=== PATIENT | female | born 1970 | race Caucasian/White ===

== ENCOUNTER 2016-11-01 08:54 | Emergency (ER) | payer MEDICARE ==
[~2016-11-01] VITALS: Ht 165.1 cm; Wt 49.9 kg
--- NOTE | 2016-11-01 09:04 | NUR ---
PT IS IN ROOM #2A. DR HERNANDEZ EVALUATED THE PT.
[2016-11-01] MEDS ORDERED: IV NORMAL SALINE 1000 ML BAG IV ONE (09:15)
[2016-11-01 09:56] LABS: BASOPHILS # (AUTO) 0.2 K/uL (0.0-0.2); BASOPHILS % (AUTO) 1.8 % (0.0-2.0); EOSINOPHILS # (AUTO) 0.1 K/uL (0.0-0.7); EOSINOPHILS % (AUTO) 0.7 % (0.0-7.0); HEMATOCRIT 39.2 % (37.0-47.0); HEMOGLOBIN 13.4 g/dL (12.0-16.0); LYMPHOCYTES # (AUTO) 2.2 K/uL (0.8-4.8); LYMPHOCYTES % (AUTO) 18.7 % (20.5-51.5); MEAN CORPUSCULAR HEMOGLOBIN 31.9 uug (27.0-31.0); MEAN CORPUSCULAR HGB CONC 34 g/dL (32.0-37.0); MEAN CORPUSCULAR VOLUME 93.3 fL (81.0-99.0); MONOCYTES # (AUTO) 0.7 K/uL (0.1-1.30); MONOCYTES % (AUTO) 5.9 % (0.0-11.0); NEUTROPHILS # (AUTO) 8.7 K/uL (1.8-8.9); NEUTROPHILS % (AUTO) 72.9 % (38.5-71.5); PLATELET COUNT (AUTO) 360 K/uL (150-450); WHITE BLOOD COUNT (AUTO) 11.9 K/uL (4.0-11.2)
[2016-11-01 10:09] LABS: AMMONIA < 10 umol/L (11-32)
[2016-11-01 10:13] LABS: ETHANOL < 3 MG/DL (0-0)
[2016-11-01 10:15] LABS: LACTIC ACID 1.4 mmol/L (0.4-2.0)
[2016-11-01 10:16] LABS: TROPONIN I < 0.017 ng/mL (0.00-0.056)
[2016-11-01 10:20] LABS: CALCIUM 9.2 mg/dL (8.5-10.1); CARBON DIOXIDE 26 mmol/L (21-32); CHLORIDE 103 mmol/L (98-107); CREATININE 0.6 mg/dL (0.6-1.3); GFR 103 mL/min (>60); GLUCOSE 89 mg/dL (74-106); SODIUM SERUM 139 mmol/L (136-145); UREA NITROGEN, BLOOD 10 mg/dL (7-18)
[2016-11-01 10:24] LABS: ACETAMINOPHEN < 2.0 ug/mL (10-30); ALANINE AMINOTRANSFERASE 27 U/L (14-59); ALBUMIN 4.1 g/dL (3.4-5.0); ALKALINE PHOSPHATASE 101 U/L (50-136); ASPARTATE AMINOTRANSFERASE 23 U/L (15-37); BILIRUBIN,DIRECT 0.1 mg/dL (0.0-0.2); BILIRUBIN,TOTAL 0.4 mg/dL (0.2-1.0); TOTAL PROTEIN, SERUM 7.5 g/dL (6.4-8.2)
[2016-11-01 10:38] LABS: THYROID STIMULATING HORMONE 0.437 mIU/mL (0.358-3.740)
--- NOTE | 2016-11-01 13:11 | NUR ---
pt was d/c to home after ara dee evaluation. gait is stable. no s/s of distress at this time. pt denies pain, no n/v, no sob. d/c instructions given to the pt by ara dee.
[2016-11-01 13:14] VITALS: BP 125/72
== END 2016-11-01 13:15 | disposition home or self-care (01) ==
LOC: ER 08:55 → EDBD 08:55 → ER 13:15
DX: F23 Brief psychotic disorder (principal); F15.10 Other stimulant abuse, uncomplicated; R41.82 Altered mental status, unspecified
CPT/HCPCS: 36415; 70030-TC; 70450; 71010; 72125; 83605; 84443; 84703; 85025; 85730; 87040; 93005; A4663; G0480-TC; G6040-TC; J7030

== ENCOUNTER 2016-11-01 14:00 | Emergency (ER) | payer MEDICARE ==
[~2016-11-01] VITALS: Ht 172.7 cm; Wt 49.9 kg
--- NOTE | 2016-11-01 14:20 | NUR ---
Pt addmitted to room 3, after refusing to leave after being discharderd from the ED, verbalilzed suicidal ideations. Psychiatric direct response consultant called for eval. Pt placed on restraints initially, now released, under close observation at all times. Pt is aggitated, verbally inapropriate, and paranoid. Cont to monitor.
--- NOTE | 2016-11-01 14:40 | NUR ---
Pt is more calm at this time, sitting in gurney and eating.
--- NOTE | 2016-11-01 14:50 | NUR ---
Pt resting in gurney with no s/s of distress noted, pending psych eval.
--- NOTE | 2016-11-01 15:24 | NUR ---
Pt remains on close observation, aggitated, redirected, not receptive; meal provided. Awaiting for psychiatric eval.
--- NOTE | 2016-11-01 16:01 | NUR ---
Pt had psychiatric evaluation, awaiting for a bed in a psychiatric facility on a hold for danger to self.
[2016-11-01] MEDS ORDERED: HALOPERIDOL LACTATE 5 MG/1 ML VIAL IM ONE (16:15)
[2016-11-01] MEDS ORDERED: diphenhydrAMINE 50 MG/1 ML VIAL IM ONE (16:15)
[2016-11-01] MEDS ORDERED: diphenhydrAMINE 50 MG/1 ML VIAL ONE (16:25)
[2016-11-01] MEDS ORDERED: HALOPERIDOL LACTATE 5 MG/1 ML VIAL ONE (16:25)
--- NOTE | 2016-11-01 16:28 | NUR ---
Pt. aggitated, not able to re-orient, medicated as ordered. Report given to [facility], nurse Kathy for transfer , addmitting Dr. Sebastian, unit #2 south. Transportation arranged, will pickle processor patient within 2 hours.
--- NOTE | 2016-11-01 17:58 | NUR ---
Pt resting on a gurney, asleep at this time, nad noted, cont to observe.
--- NOTE | 2016-11-01 18:18 | NUR ---
Patient Tranfers to outside Facility [facility] via ambulance. VSS, nad noted. Physician: Dr. Sebastian
== END 2016-11-01 18:26 | disposition short-term general hospital (02) ==
LOC: ER 14:00
DX: F23 Brief psychotic disorder (principal); F15.10 Other stimulant abuse, uncomplicated
CPT/HCPCS: A4663; J1200; J1630

== ENCOUNTER 2021-09-11 01:46 | Emergency (ER) | payer MEDICARE ==
[~2021-09-11] VITALS: Ht 162.6 cm; Wt 49.9 kg
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
--- NOTE | 2021-09-11 02:03 | NUR ---
DR CRYSTAL AT BEDSIDE FOR MSE.
[2021-09-11] MEDS ORDERED: LORAZEPAM 0.5 MG TABLET PO ONE (02:15)
[2021-09-11] MEDS ORDERED: OLANZAPINE 5 MG TABLET PO ONE (02:15)
--- NOTE | 2021-09-11 02:18 | NUR ---
CALLED [employer] NON EMERGENCY LINE SPOKE WITH DISPATCH 908, OFFICERS WILL BE SENT TO ER.
[2021-09-11] MEDS ORDERED: LORAZEPAM 1 MG TABLET ONE (02:19)
[2021-09-11] MEDS ORDERED: OLANZAPINE 5 MG TABLET ONE (02:19)
[2021-09-11 02:47] LABS: CARBON DIOXIDE 28 mmol/L (21-32); CHLORIDE 103 mmol/L (98-107); CREATININE 0.8 mg/dL (0.6-1.3); GLUCOSE 107 mg/dL (74-106); POTASSIUM 3.7 mmol/L (3.5-5.1); UREA NITROGEN, BLOOD 15 mg/dL (7-18)
--- NOTE | 2021-09-11 02:53 | NUR ---
ASSISTED Terry GOLDSTEIN FOR PELVIC EXAM.
--- NOTE | 2021-09-11 02:55 | NUR ---
[employer] UNIT [id number] (OFFICERS SERIAL # [id number] AND # [id number]) AT BEDSIDE.
[2021-09-11 03:00] LABS: THYROID STIMULATING HORMONE 0.439 mIU/mL (0.358-3.740)
[2021-09-11 03:02] LABS: ACETAMINOPHEN < 2.0 ug/mL (10-30); ALANINE AMINOTRANSFERASE 31 U/L (14-59); ALKALINE PHOSPHATASE 119 U/L (50-136); ASPARTATE AMINOTRANSFERASE 32 U/L (15-37); BILIRUBIN,DIRECT 0.2 mg/dL (0.0-0.2); BILIRUBIN,TOTAL 0.6 mg/dL (0.2-1.0); TOTAL PROTEIN, SERUM 8.2 g/dL (6.4-8.2)
[2021-09-11 03:07] LABS: ETHANOL < 3 MG/DL (0-0)
[2021-09-11 03:08] LABS: *AMPHETAMINE, URINE POSITIVE (NEGATIVE); *CANNABINOID, URINE NEGATIVE (NEGATIVE); *CLARITY,URINE CLOUDY (CLEAR); *COCCAINE, URINE NEGATIVE (NEGATIVE); *COLOR,URINE YELLOW (YELLOW); *KETONES,URINE TRACE (NEGATIVE); *OPIATE, URINE NEGATIVE (NEGATIVE); *PHENCYCLIDINE SCREEN,URINE NEGATIVE (NEGATIVE); *UROBILINOGEN,URINE 0.2 E.U./dl (NORMAL); LEUKOCYTE ESTERASE ,URINE 1+ (NEGATIVE); NITRITE, URINE NEGATIVE (NEGATIVE); UGLUCOSE NEGATIVE (NEGATIVE)
[2021-09-11 03:10] LABS: HEMATOCRIT 40.8 % (31.2-41.9); MEAN CORPUSCULAR HEMOGLOBIN 32.7 uug (24.7-32.8); PLATELET COUNT (AUTO) 412 K/uL (179-408)
[2021-09-11 03:11] LABS: *BLOOD, URINE TRACE (NEGATIVE)
[2021-09-11 03:12] LABS: *BILIRUBIN,URIN 1+ (NEGATIVE)
--- NOTE | 2021-09-11 03:58 | NUR ---
CALLED [facility]. SPOKE WITH JAMIL AND FAXED OVER PT'S CLINICAL REPORT. WILL WAIT FOR CALL BACK FROM [facility].
--- NOTE | 2021-09-11 05:50 | NUR ---
Patient is resting comfortably in bed with eyes closed. Breathing even and unlabored. VSS.
[2021-09-11 06:11] LABS: BACTERIA,URINE MODERATE /HPF (NONE SEEN); MUCUS,URINE FEW /LPF (0-FEW); WBC,URINE 80-100 /HPF (0-3)
--- NOTE | 2021-09-11 07:56 | NUR ---
ART, FROM [facility] [place] CALLED WITH TRANSFER INFORMATION. PT IS ACCEPTED BY KAILA LANGE FOR TRANSPORTATION IS 09:30 T0 10:00.
--- NOTE | 2021-09-11 08:50 | NUR ---
Pt awake and alert. Continues to agree with plan to voluntary admit. Having breakfast. Pts needs met.
--- NOTE | 2021-09-11 08:56 | NUR ---
Report called to [phone], given to Mello Agrawal sup.
--- NOTE | 2021-09-11 09:40 | NUR ---
Transport is here. Pt requesting additional time to eat. Transport states able to give her some extra time. Pt continues to agree with plan to voluntary admit.
--- NOTE | 2021-09-11 09:57 | NUR ---
Pt finished eating and is now refusing to go to [facility] [address]. Provider notified.
[2021-09-11 10:15] VITALS: BP 143/72
--- NOTE | 2021-09-11 10:16 | NUR ---
Pt ambulated without assistance and left without d/c information.
[2021-09-11 14:30] LABS: *URINE HCG, QUAL NEGATIVE (NEGATIVE)
== END 2021-09-11 10:17 | disposition left against medical advice (07) ==
LOC: ER 01:50 → MERGE 01:50 → ER 10:17
DX: F29 Unspecified psychosis not due to a substance or known physiological condition (principal); F17.210 Nicotine dependence, cigarettes, uncomplicated; F15.10 Other stimulant abuse, uncomplicated; T76.21XA Adult sexual abuse, suspected, initial encounter; R03.0 Elevated blood-pressure reading, without diagnosis of hypertension; Z20.822 Contact with and (suspected) exposure to COVID-19; Z53.20 Procedure and treatment not carried out because of patient's decision for unspecified reasons; Z88.1 Allergy status to other antibiotic agents; Z88.8 Allergy status to other drugs, medicaments and biological substances
CPT/HCPCS: 36415; 84443; 84703; 85025; 87086; A4663; G0480

== ENCOUNTER 2021-09-11 21:40 | Inpatient (IN) | payer MEDICARE ==
[~2021-09-11] VITALS: Ht 167.6 cm; Wt 57.2 kg
--- NOTE | 2021-09-12 00:25 | NUR ---
pt ambulated to room 5a, pt with not stop talking, flight of ideas noted. pt has a small open wound to left lower leg. pt states she wants to kill herself she says she want to be hit by a car in traffic. Called house wirer and security, no sitter available. pt is in close proximety to nurses station, pt will be constantly observed for safety. With security and another RN pt belongings searched, items such as lighters, broken glass from a mirror was removed and placed with security. purse and black bag with clothes left in room.
--- NOTE | 2021-09-12 00:42 | NUR ---
Dr. Sanders at bedside for MSE.
--- NOTE | 2021-09-12 00:47 | NUR ---
purse and clothes were now removed from room and will be kept at the nursing station.
--- NOTE | 2021-09-12 01:16 | NUR ---
INSTRUCTED PT TO PROVIDE URINE SAMPLE. PT STATES SHE IS THIRSTY. PROVIDED WATER BUT PT REFUSES TO DRINK.
[2021-09-12 01:31] LABS: CARBON DIOXIDE 26 mmol/L (21-32); CHLORIDE 103 mmol/L (98-107); CREATININE 0.6 mg/dL (0.6-1.3); GLUCOSE 95 mg/dL (74-106); POTASSIUM 3.3 mmol/L (3.5-5.1); UREA NITROGEN, BLOOD 14 mg/dL (7-18)
[2021-09-12 01:43] LABS: ALANINE AMINOTRANSFERASE 31 U/L (14-59); ALKALINE PHOSPHATASE 109 U/L (50-136); ASPARTATE AMINOTRANSFERASE 36 U/L (15-37); BILIRUBIN,DIRECT 0.1 mg/dL (0.0-0.2); BILIRUBIN,TOTAL 0.4 mg/dL (0.2-1.0)
--- NOTE | 2021-09-12 01:43 | NUR ---
Dr. Sanders informed pt refuses to give urine sample.
[2021-09-12 01:44] LABS: ETHANOL < 3 MG/DL (0-0)
[2021-09-12 01:51] LABS: HEMATOCRIT 37.9 % (31.2-41.9); MEAN CORPUSCULAR HEMOGLOBIN 33.3 uug (24.7-32.8); MEAN CORPUSCULAR VOLUME 96.3 fL (75.5-95.3); PLATELET COUNT (AUTO) 315 K/uL (179-408)
[2021-09-12 02:22] LABS: ACETAMINOPHEN < 2.0 ug/mL (10-30)
--- NOTE | 2021-09-12 02:33 | NUR ---
pt under constant nurse supervision. pt currently with blanket over head. monitoring vital signs.
--- NOTE | 2021-09-12 05:22 | NUR ---
pt has been sleeping. constant observation noted. order was placed for crisis team consult by Dr. Sanders. There is no crisis team nurse after 6am until 8am. Informed Dr. Sanders he states to call the crisis nurse Kelsey at 8am.
--- NOTE | 2021-09-12 07:08 | NUR ---
report given to day shift rn.
--- NOTE | 2021-09-12 07:10 | NUR ---
Observed pt to be looking in the ER room's cabinets and drawers, when asked her what is she looking for, she stated, "f... you and I do what I want." Security was called and Dr Mendoza aware of pt's behavior.
--- NOTE | 2021-09-12 07:11 | NUR ---
state highway police officer standing by the room, for safety.
[2021-09-12] MEDS ORDERED: HALOPERIDOL LACTATE 5 MG/1 ML VIAL IM ONE ×2 (07:15→11:30)
[2021-09-12] MEDS ORDERED: MIDAZOLAM HCL 2 MG/2 ML VIAL IM ONE (07:15)
[2021-09-12] MEDS ORDERED: MIDAZOLAM HCL 2 MG/2 ML VIAL ONE (07:21)
[2021-09-12] MEDS ORDERED: HALOPERIDOL LACTATE 5 MG/1 ML VIAL ONE ×2 (07:21→11:29)
[2021-09-12 07:24] LABS: *BILIRUBIN,URIN 1+ (NEGATIVE); *CLARITY,URINE SLIGHTLY CLOUDY (CLEAR); *COLOR,URINE YELLOW (YELLOW); *KETONES,URINE NEGATIVE (NEGATIVE); *UROBILINOGEN,URINE 0.2 E.U./dl (NORMAL); LEUKOCYTE ESTERASE ,URINE NEGATIVE (NEGATIVE); NITRITE, URINE NEGATIVE (NEGATIVE); PH,URINE 5.5 (5.0-8.0); UGLUCOSE NEGATIVE (NEGATIVE)
[2021-09-12 07:25] LABS: *BLOOD, URINE TRACE (NEGATIVE)
--- NOTE | 2021-09-12 07:35 | NUR ---
PT BECAME VERBALLY ABUSIVE TO ER STAFF. PT IS THROWING ITEMS AND WATER ON THE FLOOR. SECURITY WAS CALLED TO BEDSIDE. PT WAS AGREE TO GO TO BED AND NOW IS RESTING COMFORTABLY IN BED. CONTINUE TO MONITOR THE PT.
[2021-09-12 07:38] LABS: MUCUS,URINE MANY /LPF (0-FEW)
[2021-09-12 07:39] LABS: BACTERIA,URINE FEW /HPF (NONE SEEN)
[2021-09-12 07:41] LABS: *AMPHETAMINE, URINE POSITIVE (NEGATIVE); *CANNABINOID, URINE POSITIVE (NEGATIVE); *COCCAINE, URINE NEGATIVE (NEGATIVE); *OPIATE, URINE NEGATIVE (NEGATIVE); *PHENCYCLIDINE SCREEN,URINE NEGATIVE (NEGATIVE)
[2021-09-12 07:50] LABS: SQUAMOUS EPITHELIAL CELL,UR FEW /HPF (NONE SEEN)
[2021-09-12 07:51] LABS: RBC,URINE 0-3 /HPF (0-3)
--- NOTE | 2021-09-12 08:07 | NUR ---
Pt is medically cleared by Dr Mendoza. Spoke to Kelsey Telles RN from [facility], ETA @[phone].
--- NOTE | 2021-09-12 09:53 | NUR ---
JORGE FIELD LABORER CAROL EVALUATED THE PT. PT IS RESTING IN BED. NO S/S OF ACUTE DISTRESS AT THIS TIME.
--- NOTE | 2021-09-12 12:43 | NUR ---
REPORT WAS GIVEN TO RN MHU. PT WAS TRANSFERED TO ROOM #138A.
--- NOTE | 2021-09-12 13:02 | NUR ---
GPS: Nursing Notes: Admitting Notes: Patient admitted to MHU on 5150 DTS due to feeling suicidal with a plan to run into traffic, unable to contract for safety, uncooperative, angry, and irritable. Patient is awake and responding to her name, uncooperative with nursing care, impaired judgment, loud and pressured speech, poor historian, depressed mood and angry affect, stated "Yes, I feel like running into traffic...", gets easily irritable when questioned by staff, unkempt appearance, poor grooming, verbally jose for safety, oriented to the unit, admitting package given to the patient, informed of admission, Yarelis Ball NP informed of abnormal labs, stated that she would take a look at the labs, no further orders were given, continue to monitor for safety, continue with treatment plan.
[2021-09-12 13:29] VITALS: BP 86/45
[2021-09-12] MEDS ORDERED: MAGNESIUM HYDROXIDE 30 ML LIQUID UDC PO PRN (13:45)
[2021-09-12] MEDS ORDERED: ZOLPIDEM 5 MG TABLET PO PRN (13:45)
[2021-09-12] MEDS ORDERED: BLOOD SUGAR DIAGNOSTIC 1 EACH STRIP VI ONE (14:30)
[2021-09-12 16:49] VITALS: BP 93/46
[2021-09-12] MEDS: LORAZEPAM 1 MG TABLET PO PRN (21:01)
--- NOTE | 2021-09-13 06:10 | NUR ---
Patient slept 9 hours. At one point , at the start of the shift, this patient woke up. Asked for food, and " Ativan", agreed to shower, but soon went back to sleep. The patient was calm, but seemed easily agitated. No behavior escalation noted so far and continuing with safety stratiges. This patient made a verbal contract for safety with this radio script writer.
[2021-09-13 07:07] LABS: HEMATOCRIT 38.7 % (31.2-41.9); MEAN CORPUSCULAR HEMOGLOBIN 33.4 uug (24.7-32.8); MEAN CORPUSCULAR VOLUME 96.4 fL (75.5-95.3); PLATELET COUNT (AUTO) 300 K/uL (179-408)
[2021-09-13 07:16] LABS: CREATININE 0.6 mg/dL (0.6-1.3); POTASSIUM 3.7 mmol/L (3.5-5.1)
[2021-09-13 07:52] VITALS: BP 87/44
[2021-09-13] MEDS: risperiDONE 0.25 MG TABLET PO SCH ×2 (09:30→16:40)
--- NOTE | 2021-09-13 11:19 | NUR ---
GPS: Nursing Notes: Destructive Behavior to Self: Patient is awake and responding to her name, impaired judgment, poor anger management, poor impulse control, labile, unpredictable behavior, gets easily irritable when redirected, loud and pressured speech, verbal abusive toward roommate, using profanities when her demands are not met immediately, depressed mood and angry affect, poor grooming, believes that she has a leg fracture, but able to ambulate without any discomfort, refusing her psych. medications, refusing nursing care, laying down on a position and sleeping, asking for food, but refusing to eat, unable to formulate a viable plan for self care, refusing to shower, poor grooming, unkempt appearance, continue with treatment plan.
--- NOTE | 2021-09-13 11:32 | NUR ---
GPS: Nursing Notes: Uncooperative with Staff: Patient is refusing to give urine for lab. test, refusing for MRSA to be done, paranoid behavior, verbal abusive, threatening staff with patient's rights, threatening to [facility]ennifer the hospital, "I don't belong here..", continue with treatment plan.
[2021-09-13] MEDS: ACETAMINOPHEN 325 MG TABLET PO PRN (13:49)
[2021-09-13] MEDS: LORAZEPAM 1 MG TABLET PO PRN (13:49)
[2021-09-13] MEDS ORDERED: OLANZAPINE 10 MG VIAL IM STA (15:08)
--- NOTE | 2021-09-13 15:16 | NUR ---
GPS: Nursing Notes: Severe Agitation: Patient is awake and responding to her name, violent outburst without provocation, verbal abusive, using profanities toward staff, threatening to somebody here, threatening to [facility] the [facility], posturing toward staff, AWOL risk, walking on the hallway fast, half naked looking for an exit door, "I DON'T FUCKEN BELONG HERE..", overly disruptive by shouting profanities, restless behavior, paranoid behavior, throwing things around, unable to be redirected, poor anger management, continue to monitor for safety, Dr. Shahab rodriguez, continue with treatment plan.
--- NOTE | 2021-09-13 15:21 | NUR ---
GPS: Nursing Notes: Chemical Restraint: Patient continue to be overly disruptive by shouting profanities toward staff, threatening to kill the staff, threatening to [facility], posturing toward staff, throwing things around her room, half naked walking fast, looking for an exit door, AWOL risk, restless behavior, setting limits, but unable to follow directions, Dr. Gudino called and order: Zyprexa 10mg IM STAT X1 for severe agitation, R=18, IM medication given at this time, continue to monitor for safety, continue with treatment plan.
--- NOTE | 2021-09-13 15:51 | NUR ---
GPS: Nursing Notes: Reassessment of Chemical Restraint: Patient is awake responding to her name, believes that she does not belong here, asking for food, but not eating, throwing trash all over her room. Patient became calm, isolative in her room, stopped shouting, continue to monitor for safety, IM medication was helpful, R=18, resistant to nursing care, refusing to shower, continue with treatment plan.
[2021-09-13 19:48] VITALS: BP 99/50
[2021-09-13] MEDS ORDERED: TRAZODONE 50 MG TABLET PO SCH (21:00)
--- NOTE | 2021-09-14 05:34 | NUR ---
Patient slept for long hours. In the beginning of the shift, patient was asking for food and coffee. Strongly refused to take trazodone. Patient get easily agitated with noise, but remained calm, no escalation of behavior noted. Safety strategies provided. Suicidal ideation not noted.
[2021-09-14] MEDS: ACETAMINOPHEN 325 MG TABLET PO PRN ×2 (06:37→15:09)
[2021-09-14 08:00] VITALS: BP 125/53
[2021-09-14] MEDS ORDERED: TRAZODONE 50 MG TABLET PO PRN (08:30)
[2021-09-14] MEDS: OLANZAPINE ZYDIS 5 MG TAB.RAPDIS PO SCH ×2 (09:11→17:23)
[2021-09-14] MEDS: SERTRALINE HCL 50 MG TABLET PO SCH (09:11)
[2021-09-14] MEDS: CEphaleXIN 500 MG CAPSULE PO SCH ×2 (09:13→21:23)
--- NOTE | 2021-09-14 12:24 | NUR ---
DIANA Initial Discharge Note: Pt was brought to [facility] for psychiatric evaluation. Pt is unable to ascertain any information. Per report, pt is homeless and does not have a person to notify. DIANA will continue to work with pt, family, and MD to ensure a safe and proper discharge plan.
--- NOTE | 2021-09-14 12:24 | NUR ---
SW Admit Source: Pt was brought to [facility] for psychiatric evaluation. Pt is unable to ascertain any information. Per report, pt is homeless and does not have a person to notify. SW will continue to work with pt, family, and MD to ensure a safe and proper discharge plan.
--- NOTE | 2021-09-14 12:57 | NUR ---
report given to JOHN Cancino. patient is in stable condition
--- NOTE | 2021-09-14 13:00 | NUR ---
in bed, eating lunch, able to consume 100% of food served. Calm and cooperative with care. Resting after lunch.
[2021-09-14] MEDS: LORAZEPAM 1 MG TABLET PO PRN (15:04)
--- NOTE | 2021-09-14 15:10 | NUR ---
Patient out in the hallway, wrapped in bedsheet, agitated, asking for a shower, wound care to LLE Redirected back to her room. Refused Ativan, to change to hospital gown and wound care. She only asked for Tylenol with juice and crackers. Calmer after
[2021-09-14 16:00] VITALS: BP 126/73
--- NOTE | 2021-09-14 16:00 | NUR ---
agitated, argumentative. Redirected. Took Ativan
--- NOTE | 2021-09-14 18:02 | NUR ---
Eating dinner. Calmer. Compliant with taking of medication
--- NOTE | 2021-09-14 20:30 | NUR ---
RECEIVED PATIENT IN HER ROOM IN BED SLEEPING BUT EASILY AWAKEN. SHE IS NOTED A/O X 2. TANGENTAL, LABILE, DELUSIONAL THINKING, IMPAIRED INSIGHT AND JUDGMENT IS NOTED TO THE REASON FOR HER ADMISSION TO MHU. SHE WAS GIVEN PO FLUIDS AND SNACKS/ SHE IS REASSURED FOR HER SAFETY. SAFETY AND FALL PRECAUTION ARE IN PLACE. V/S STABLE. WILL CONTINUE TO MONITOR.
[2021-09-14 20:49] VITALS: BP 126/56
[2021-09-15] MEDS: ACETAMINOPHEN 325 MG TABLET PO PRN ×2 (05:58→16:54)
--- NOTE | 2021-09-15 06:54 | NUR ---
Patient slept for approx 9 hrs through the night. she was compliant with her [facility] medication. Sh4e denied SI/HI/VH/AH she is able to verbally CFS. will endorse accordingly.
[2021-09-15 07:30] VITALS: BP 116/49
--- NOTE | 2021-09-15 08:00 | NUR ---
Awake, calm and pleasant. Eating fairly. compliant with taking of medications
[2021-09-15] MEDS: CEphaleXIN 500 MG CAPSULE PO SCH ×2 (08:48→21:02)
[2021-09-15] MEDS: OLANZAPINE ZYDIS 5 MG TAB.RAPDIS PO SCH ×2 (08:48→16:54)
[2021-09-15] MEDS: SERTRALINE HCL 50 MG TABLET PO SCH (08:48)
[2021-09-15] MEDS: ENSURE ENLIVE (VAN) 240 ML LIQUID PO SCH (08:49)
--- NOTE | 2021-09-15 09:34 | NUR ---
on 14 day hold, faxed to court.
[2021-09-15] MEDS: NICOTINE 7 MG/24HR PATCH TD SCH (10:35)
--- NOTE | 2021-09-15 10:35 | NUR ---
had a shower. requested for nicotine patch, applied as ordered
--- NOTE | 2021-09-15 13:28 | NUR ---
Ate lunch fairly. Sleeping after
--- NOTE | 2021-09-15 15:00 | NUR ---
Awake, on phone calls to family and friends. Elated, with multiple request. Redirected
[2021-09-15 16:00] VITALS: BP 153/70
--- NOTE | 2021-09-15 18:16 | NUR ---
Ate 100% of meal. Compliant with taking of medications. Resting comfortably
[2021-09-15 20:00] VITALS: BP 117/82
[2021-09-15] MEDS: LORAZEPAM 1 MG TABLET PO PRN (21:05)
--- NOTE | 2021-09-16 04:44 | NUR ---
Received lying in bed, pleasant upon approach. Denies any thoughts of suicide, or wanting to hurt self. PRN Ativan was given at bedtime, and has slept well all night. No distress noted.
[2021-09-16] MEDS: ACETAMINOPHEN 325 MG TABLET PO PRN ×3 (07:33→17:50)
[2021-09-16 08:07] VITALS: BP 125/80
[2021-09-16] MEDS: SERTRALINE HCL 50 MG TABLET PO SCH (09:03)
[2021-09-16] MEDS: OLANZAPINE ZYDIS 5 MG TAB.RAPDIS PO SCH ×2 (09:03→17:49)
[2021-09-16] MEDS: CEphaleXIN 500 MG CAPSULE PO SCH ×2 (09:03→20:28)
[2021-09-16] MEDS: NICOTINE 7 MG/24HR PATCH TD SCH (09:03)
[2021-09-16] MEDS: ENSURE ENLIVE (VAN) 240 ML LIQUID PO SCH (09:04)
[2021-09-16] MEDS: MAG HYDROX/AL HYDROX/SIMETH 30 ML LIQUID UDC PO PRN ×2 (11:28→17:50)
--- NOTE | 2021-09-16 11:35 | NUR ---
GPS: PT RECEIVED TODAY ON GOOD MOOD. PACING THE HALLWAY, HAVING FUN WITH OTHER PT, TALKING WITH THEM AND SINGING. PT REQUESTED TYLENOL FOR WOUND PAIN. ALSO REQUESTED FOR MYLANTA FOR STOMACH UPSET. PARTICIPATED WITH GROUP THERAPY. PT ROMEL NEEDY AT TIMES, ASKING FOR ALL STUFF.
[2021-09-16 16:00] VITALS: BP 104/68
--- NOTE | 2021-09-16 18:25 | NUR ---
GPS: PT LIKES PACING ON THE HALLWAY. ONE EPISODE OF AGITATION THAT PT WAS ASKING FOR PANTS AND ALL STUFFS AND PT WALKED ON THE HALLWAY NAKED. RE-DIRECTED PT AND ABLE TO FOLLOW COMMAND AND PT PUT ON HER PANTS. PAIN ON WOUND SITE NOTED, TREATMENT DONE AND DRESSING CHANGED, MILD DISCHARGE NOTED, NO SWELLING OR REDNESS. REQUESTED FOR TYLENOL 650MG DUE TO PAIN ON WOUND SITE. ALSO GIVEN MYLANTA AT AROUND 1800. PT STATED SHE HAS LACTOSE INTOLERANCE.
--- NOTE | 2021-09-16 20:15 | NUR ---
Received patient initially walking in the hallway with calm behavior, giving appropriate answers when asked. However, suddenly patient screaming, aggressive, throwing trash and verbally abusive to the staff. Reorient patient to reality, redirected and reassured of her safety. Ativan 1mg PO given. Patient went back to her room laying in bed and calm down at this time.
[2021-09-16] MEDS: LORAZEPAM 1 MG TABLET PO PRN (20:29)
[2021-09-16 20:43] VITALS: BP 105/55
--- NOTE | 2021-09-17 06:45 | NUR ---
Patient slept well through the night for 7.45hrs. She woke up and wanted to take a shower. She took shower independently. Dressing of wound at left khan done, wound is dry with minimal redness around the wound. Agressive behavior not noted at this time. Observed to have a positive outlook today stated" its a brand new day for me and I want to go home soon".
[2021-09-17] MEDS: ACETAMINOPHEN 325 MG TABLET PO PRN ×2 (06:51→14:55)
[2021-09-17 08:04] VITALS: BP 120/50
[2021-09-17] MEDS: NICOTINE 7 MG/24HR PATCH TD SCH (08:34)
[2021-09-17] MEDS: CEphaleXIN 500 MG CAPSULE PO SCH ×2 (08:34→21:44)
[2021-09-17] MEDS: SERTRALINE HCL 50 MG TABLET PO SCH (08:35)
[2021-09-17] MEDS: ENSURE ENLIVE (VAN) 240 ML LIQUID PO SCH (08:35)
[2021-09-17] MEDS: OLANZAPINE ZYDIS 5 MG TAB.RAPDIS PO SCH ×2 (08:40→17:13)
[2021-09-17] MEDS ORDERED: ESTRADIOL 1 MG TABLET PO SCH (10:30)
--- NOTE | 2021-09-17 10:32 | NUR ---
GPS: PT ALERT AND VERBALLY RESPONSIVE. NO AGITATION NOTED AT THIS TIME. TOLERATED MEDS GIVEN AND COOPERATIVE WITH CARE. PT NEEDY AND ATTENTION SEEKER. LIKES PACING THE HALLWAY AND PARTICIPATED WITH GROUP THERAPY.
[2021-09-17] MEDS: predniSONE 5 MG TABLET PO SCH (10:45)
[2021-09-17] MEDS ORDERED: ESTRADIOL 1 MG TABLET PO ONE (10:45)
[2021-09-17] MEDS: LORAZEPAM 1 MG TABLET PO PRN ×2 (14:55→23:44)
[2021-09-17] MEDS: BISMUTH SUBSALICYLATE 262 MG/15 ML UDC PO PRN (15:12)
--- NOTE | 2021-09-17 16:56 | NUR ---
GPS: PT REQUESTED FOR MEDS THAT SHE TAKES FROM HOME. COMMUNICATED WITH ZOEY MARADIAGA, THERESA AND ORDERED PROGESTERONE AND ESTRIOL, ALSO PEPTO BISMOL ORDERED PT COMPLAINING OF DIARRHEA. EXPLAINED TO PT THAT IT COULD BE THE SIDE EFFECT OF KEFLEX SHE'S TAKING. PT ALSO GIVEN TYLENOL NEEDED.
[2021-09-17 20:00] VITALS: BP 108/60
[2021-09-18] MEDS: ACETAMINOPHEN 325 MG TABLET PO PRN ×2 (05:31→12:02)
--- NOTE | 2021-09-18 06:36 | NUR ---
Received to care, lying in bed, isolative, but pleasant upon approach. PRN Ativan was given at bedtime. She continues to deny any suicidal thoughts. She slept well, throughout the night. She remains calm and cooperative. No distress noted.
[2021-09-18] MEDS: BISMUTH SUBSALICYLATE 262 MG/15 ML UDC PO PRN ×2 (07:47→16:57)
[2021-09-18] MEDS: SERTRALINE HCL 50 MG TABLET PO SCH (08:18)
[2021-09-18] MEDS: NICOTINE 7 MG/24HR PATCH TD SCH (08:18)
[2021-09-18] MEDS: OLANZAPINE ZYDIS 5 MG TAB.RAPDIS PO SCH ×2 (08:19→16:18)
[2021-09-18] MEDS: predniSONE 5 MG TABLET PO SCH (08:19)
[2021-09-18] MEDS: CEphaleXIN 500 MG CAPSULE PO SCH ×2 (08:19→20:29)
[2021-09-18] MEDS: ENSURE ENLIVE (VAN) 240 ML LIQUID PO SCH (08:19)
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
[2021-09-18 09:48] VITALS: BP 108/62
[2021-09-18 16:18] VITALS: BP 98/48
[2021-09-18 20:00] VITALS: BP 108/55
[2021-09-18] MEDS: LORAZEPAM 1 MG TABLET PO PRN (20:29)
[2021-09-19 07:30] VITALS: BP_SYST 121; BP_SYST 98; BP_DIAS 53; BP_DIAS 67
[2021-09-19] MEDS: ACETAMINOPHEN 325 MG TABLET PO PRN (07:43)
[2021-09-19] MEDS: BISMUTH SUBSALICYLATE 262 MG/15 ML UDC PO PRN ×2 (08:11→15:50)
[2021-09-19] MEDS: NICOTINE 7 MG/24HR PATCH TD SCH (08:12)
[2021-09-19] MEDS: CEphaleXIN 500 MG CAPSULE PO SCH ×2 (08:13→20:23)
[2021-09-19] MEDS: OLANZAPINE ZYDIS 5 MG TAB.RAPDIS PO SCH ×2 (08:13→17:28)
[2021-09-19] MEDS: SERTRALINE HCL 50 MG TABLET PO SCH (08:13)
[2021-09-19] MEDS: predniSONE 5 MG TABLET PO SCH (08:14)
[2021-09-19] MEDS: ENSURE ENLIVE (VAN) 240 ML LIQUID PO SCH (08:19)
[2021-09-19] MEDS: LORAZEPAM 1 MG TABLET PO PRN (13:57)
[2021-09-19 16:00] VITALS: BP 98/53
--- NOTE | 2021-09-19 17:58 | NUR ---
Received patient awake in the hallway. A/O X 2 to person, place. Pt. is calm, cooperative, depressed. Ambulates without assistance. Requires minimal assistance with ADL. Compliant with medications. Pt. is encourage to vent feelings and emotions. Fall and safety precautions implemented. Addendum: 09/19/21 at 1803 by RAUDEL SAGASTUME RN Please disregard this progress note, wrong patient.
--- NOTE | 2021-09-19 18:05 | NUR ---
Received patient awake in her room. A/O X 3 to person, place. Pt. is anxious, demanding, needy, fixated on snacks, gets irritated easily. Tylenol 650 mg was given at 07:43 for headache, effective. Ativan 1 mg was given at 13:55 for anxiety, effective. [place] Bismuth 262 mg/ 15 ml given twice for diarrhea, last one at 15:51. Ambulates independently. Self care. Pt. is encourage to verbalize concerns. Fall and safety precautions implemented.
[2021-09-19 19:55] VITALS: BP 101/51
[2021-09-20] MEDS: BISMUTH SUBSALICYLATE 262 MG/15 ML UDC PO PRN ×2 (05:10→16:08)
[2021-09-20 07:47] VITALS: BP 112/53
[2021-09-20] MEDS: ACETAMINOPHEN 325 MG TABLET PO PRN ×2 (07:47→15:29)
[2021-09-20] MEDS: CEphaleXIN 500 MG CAPSULE PO SCH (08:10)
[2021-09-20] MEDS: SERTRALINE HCL 50 MG TABLET PO SCH (08:10)
[2021-09-20] MEDS: OLANZAPINE ZYDIS 5 MG TAB.RAPDIS PO SCH ×2 (08:10→18:33)
[2021-09-20] MEDS: ENSURE ENLIVE (VAN) 240 ML LIQUID PO SCH (08:11)
[2021-09-20] MEDS: NICOTINE 7 MG/24HR PATCH TD SCH (08:11)
[2021-09-20] MEDS: predniSONE 5 MG TABLET PO SCH (08:11)
[2021-09-20] MEDS: LORAZEPAM 1 MG TABLET PO PRN (15:29)
--- NOTE | 2021-09-20 15:53 | NUR ---
GPS: RECEIVED PT TODAY ALERT AND VERBALLY RESPONSIVE AND ORIENTED X 3. PT KIND OF NEEDY. PT REQUESTED FROR TYLENOL FOR PAIN AND ATIVAN TO CALM HER DOWN AFTER A PHONE CALL. NO AGITATION NOTED AT THIS TIME. COOPERATIVE WITH CARE AND COMPLIANT WITH MEDS. DID NOT COMPLAIN OF LOSE BOWEL MOVEMENT AT THIS TIME. WILL MONITOR.
[2021-09-20 22:05] VITALS: BP 92/40
[2021-09-21] MEDS: BISMUTH SUBSALICYLATE 262 MG/15 ML UDC PO PRN ×2 (07:22→15:22)
[2021-09-21 07:48] VITALS: BP 102/55
[2021-09-21] MEDS: predniSONE 5 MG TABLET PO SCH (08:48)
[2021-09-21] MEDS: OLANZAPINE ZYDIS 5 MG TAB.RAPDIS PO SCH ×2 (08:48→18:03)
[2021-09-21] MEDS: SERTRALINE HCL 50 MG TABLET PO SCH (08:48)
[2021-09-21] MEDS: NICOTINE 7 MG/24HR PATCH TD SCH (08:48)
[2021-09-21] MEDS: ENSURE ENLIVE (VAN) 240 ML LIQUID PO SCH (08:49)
[2021-09-21] MEDS ORDERED: ESTRADIOL 1 MG TABLET PO SCH (09:00)
--- NOTE | 2021-09-21 09:49 | NUR ---
GPS: RECEIVED PT ALERT AND VERBALLY RESPONSIVE. ORIENTED X 3. PT WILL BE DISCHARGE TO HOME (ADDRESS NOT PROVIDED) VIA BUS TOKEN PROVIDED BY [facility]. PT EXCITED TO BE DISCHARGE. COMPLIANT WITH CARE AND MEDS. NO AGITATION AT THIS TIME. DR VERA PRESCRIBED MEDS FOR DISCHARGE. LEO ANTUNEZ,THERESA MADE AWARE OF THE DISCHARGE.
--- NOTE | 2021-09-21 11:57 | NUR ---
DIANA Discharge Update: DIANA contacted pt's mother Tala ([phone]) and notified her that pt agrees to discharge to [facility] ([phone]) upon discharge. Pt's mother was aware and agreeable with the discharge plan. Pt's mother stated she is thankful as the pt will be in a safe environment. DIANA also notified pt's friend Markos ([phone]) who is pt's friend that was also not bale to provide transportation that pt will no longer need transportation as pt will be discharging to [facility] via ambulance. Markos is aware and agreeable with the discharge plan.
[2021-09-21 15:12] VITALS: BP 92/42
[2021-09-21] MEDS: ACETAMINOPHEN 325 MG TABLET PO PRN (15:38)
[2021-09-21] MEDS: LORAZEPAM 1 MG TABLET PO PRN (15:38)
[2021-09-21 20:02] VITALS: BP 101/51
--- NOTE | 2021-09-22 06:03 | NUR ---
Received to care, lying in bed, sleeping intermittently. Calm and cooperative. No distress noted, all night.
[2021-09-22] MEDS: BISMUTH SUBSALICYLATE 262 MG/15 ML UDC PO PRN (07:06)
[2021-09-22 07:30] VITALS: BP 110/50
[2021-09-22] MEDS: SERTRALINE HCL 50 MG TABLET PO SCH (08:26)
[2021-09-22] MEDS: NICOTINE 7 MG/24HR PATCH TD SCH (08:26)
[2021-09-22] MEDS: OLANZAPINE ZYDIS 5 MG TAB.RAPDIS PO SCH (08:26)
[2021-09-22] MEDS: predniSONE 5 MG TABLET PO SCH (08:27)
[2021-09-22] MEDS: ENSURE ENLIVE (VAN) 240 ML LIQUID PO SCH (08:27)
--- NOTE | 2021-09-22 08:56 | NUR ---
DIANA Discharge Note: Pt will be discharged to [facility] [address] [address] ([phone]) via ambulance transportation at 11AM on 09/22/21. [facility] ([phone]) DIANA spoke with [facility] in admissions ([phone]) who stated they are ready to accept the pt today. DIANA spoke with pts mother Tala ([phone]) who stated that she and pts daughter cannot provide transportation for pt and they stated they recommend a nursing facility. Tala stated that pt has not had an address for years and the safest for her is a nursing facility. DIANA also contacted pts friend Markos ([phone]) who pt stated to be contacted for transportation and Markos stated he cannot provide transportation due to vehicle problems. Tala is aware and agreeable with the discharge plan. Pt is alert and oriented x2 (name and location). Pt initially stated to staff that she would like to discharge on her own and she does not wish to state her location for privacy reasons. Pt is now aware and agreeable with discharge plan to [facility]. Pt denies any suicidal or homicidal ideation. Pt will follow-up at the facility with Psychiatrist, Dr. Gudino and Human Resources Communications Manager, Dr. Hill.
--- NOTE | 2021-09-22 10:07 | NUR ---
GPS: PT ALERT AND VERBALLY RESPONSIVE. ORIENTED X 3. PT COOPERATIVE WITH CARE AND COMPLIANT WITH MEDS. Pt will be discharged [place] [facility] [place] [address] [place] [place] [address] ([phone]) via ambulance transportation at 11AM. NO AGITATION AT THIS TIME.
--- NOTE | 2021-09-22 11:59 | NUR ---
GPS: AMBULANCE CAME, PT BELONGINGS TAKEN AND SIGNED BY PT. DENIES PAIN OR DISCOMFORT. CALLED [facility] AND SPOKE WITH TAN, ADMITTING NURSE. PT COVID TEST NEGATIVE TODAY. PSYCHIATRIST AND PLANT CUSTODIAN MADE AWARE.
== END 2021-09-22 12:15 | DRG 885 ==
LOC: ER 21:58 → GPS 09-12 11:32
PROVIDERS: ADMIT Psychiatry & Neurology Psychiatry; ATTEND Registered Nurse
DX: F33.3 Major depressive disorder, recurrent, severe with psychotic symptoms (principal); R45.851 Suicidal ideations; N39.0 Urinary tract infection, site not specified; E87.6 Hypokalemia; F15.10 Other stimulant abuse, uncomplicated; F19.10 Other psychoactive substance abuse, uncomplicated; F12.10 Cannabis abuse, uncomplicated; F43.10 Post-traumatic stress disorder, unspecified; Z59.00 Homelessness unspecified; F29 Unspecified psychosis not due to a substance or known physiological condition; F41.9 Anxiety disorder, unspecified; F39 Unspecified mood [affective] disorder; Z73.6 Limitation of activities due to disability; Z20.822 Contact with and (suspected) exposure to COVID-19; Z79.899 Other long term (current) drug therapy; Z91.410 Personal history of adult physical and sexual abuse
CPT/HCPCS: 36415; 85025; 87086; 93005; 97161; A4663; A9150; G0480; J1630; J2250; J2358; J7512

== ENCOUNTER 2023-09-02 15:10 | Inpatient (IN) | payer MEDICARE, OTHER ==
[~2023-09-02] VITALS: Ht 165.1 cm; Wt 45.4 kg
[2023-09-02 15:55] LABS: DIFFERENTIAL COMMENT 0; EOSINOPHILS # (AUTO) 0.1 K/uL (0.0-0.7); LYMPHOCYTES # (AUTO) 2.4 K/uL (0.8-4.8); MONOCYTES # (AUTO) 0.4 K/uL (0.1-1.30); RED BLOOD CELL COUNT(AUTO) 4.71 MIL/uL (3.63-4.92)
[2023-09-02 16:02] LABS: BASOPHILS # (AUTO) 0.1 K/UL (0.0-0.2); BASOPHILS % (AUTO) 1.1 % (0.0-2.0); EOSINOPHILS % (AUTO) 1.3 % (0.0-7.0); HEMATOCRIT 43.3 % (31.2-41.9); HEMOGLOBIN 15.1 g/dL (10.9-14.3); LYMPHOCYTES % (AUTO) 39.6 % (20.5-51.5); MEAN CORPUSCULAR HEMOGLOBIN 32.1 uug (24.7-32.8); MEAN CORPUSCULAR HGB CONC 35 g/dL (32.3-35.6); MONOCYTES % (AUTO) 6.3 % (0.0-11.0); NEUTROPHILS # (AUTO) 3.1 K/uL (1.8-8.9); NEUTROPHILS % (AUTO) 51.7 % (38.5-71.5); PLATELET COUNT (AUTO) 250 K/uL (179-408); RED CELL DISTRIBUTION WIDTH 14.4 % (12.3-17.7)
[2023-09-02 16:04] LABS: CALCIUM 9.2 mg/dL (8.5-10.1); CARBON DIOXIDE 22 mmol/L (21-32); CHLORIDE 102 mmol/L (98-107); CREATININE 0.6 mg/dL (0.6-1.3); ETHANOL < 3 MG/DL (0-10); GLUCOSE 77 mg/dL (74-106); POTASSIUM 4.1 mmol/L (3.5-5.1); SODIUM SERUM 140 mmol/L (136-145); UREA NITROGEN, BLOOD 10 mg/dL (7-18)
[2023-09-02] MEDS ORDERED: DOCU-141 PO (16:08)
[2023-09-02] MEDS ORDERED: BENZ1LOZ58 PO (16:08)
[2023-09-02] MEDS ORDERED: MIRT-121 PO (16:08)
[2023-09-02] MEDS ORDERED: LORA0.5T48 PO (16:08)
[2023-09-02] MEDS ORDERED: ACET325T53 PO (16:08)
[2023-09-02] MEDS ORDERED: MAGN400O6 PO (16:08)
[2023-09-02] MEDS ORDERED: CLON0.1T PO (16:08)
[2023-09-02] MEDS ORDERED: ONDA4TAB11 PO (16:08)
[2023-09-02] MEDS ORDERED: TUBE1VIA ID (16:08)
[2023-09-02] MEDS ORDERED: MAG-151 PO (16:08)
[2023-09-02] MEDS ORDERED: GABA-532 PO (16:08)
[2023-09-02] MEDS ORDERED: BISA10SU61 RC (16:08)
[2023-09-02] MEDS ORDERED: LOPE-195 PO (16:08)
[2023-09-02] MEDS ORDERED: NA P133E RC (16:08)
[2023-09-02 16:10] LABS: ALANINE AMINOTRANSFERASE 27 U/L (14-59); ALBUMIN 3.7 g/dL (3.4-5.0); ALKALINE PHOSPHATASE 115 U/L (50-136); ASPARTATE AMINOTRANSFERASE 14 U/L (15-37); BILIRUBIN,DIRECT 0.2 mg/dL (0.0-0.2); BILIRUBIN,TOTAL 0.7 mg/dL (0.2-1.0); TOTAL PROTEIN, SERUM 7.2 g/dL (6.4-8.2)
[2023-09-02 16:13] LABS: ACETAMINOPHEN < 2.0 ug/mL (10-30)
[2023-09-02 17:06] LABS: *BILIRUBIN,URIN 3+ (NEGATIVE); *BLOOD, URINE NEGATIVE (NEGATIVE); *CLARITY,URINE CLEAR (CLEAR); *COLOR,URINE DARK YELLOW (YELLOW); *KETONES,URINE 4+ (NEGATIVE); *PROTEIN,URINE 2+ (NEGATIVE); *UROBILINOGEN,URINE 0.2 E.U./dl (NORMAL); LEUKOCYTE ESTERASE ,URINE NEGATIVE (NEGATIVE); NITRITE, URINE NEGATIVE (NEGATIVE); UGLUCOSE NEGATIVE (NEGATIVE)
[2023-09-02 17:18] LABS: BACTERIA,URINE NONE SEEN /HPF (NONE SEEN); RBC,URINE 0-3 /HPF (0-3); SQUAMOUS EPITHELIAL CELL,UR FEW /HPF (NONE SEEN); WBC,URINE 0-3 /HPF (0-3)
[2023-09-02 17:19] LABS: *AMPHETAMINE, URINE NEGATIVE (NEGATIVE); *BARBITURATE, URINE NEGATIVE (NEGATIVE); *BENZODIAZEPINE, URINE NEGATIVE (NEGATIVE); *CANNABINOID, URINE NEGATIVE (NEGATIVE); *COCCAINE, URINE NEGATIVE (NEGATIVE); *OPIATE, URINE NEGATIVE (NEGATIVE); *PHENCYCLIDINE SCREEN,URINE NEGATIVE (NEGATIVE)
[2023-09-02 17:20] LABS: FENTANYL, URINE NEGATIVE (NEGATIVE); URIC ACID CRYSTALS,URINE MODERATE /HPF (NONE SEEN)
[2023-09-02] MEDS ORDERED: LORAZEPAM 1 MG TABLET ONE (18:31)
[2023-09-02] MEDS: LORAZEPAM 0.5 MG TABLET PO ONE (18:33)
[2023-09-02 21:00] VITALS: BP 105/77; TEMP 97.8; O2SAT 97
[2023-09-02] MEDS ORDERED: MAGNESIUM HYDROXIDE 30 ML LIQUID UDC PO PRN (22:30)
[2023-09-02] MEDS ORDERED: MAG HYDROX/AL HYDROX/SIMETH 30 ML LIQUID UDC PO PRN (22:30)
[2023-09-02] MEDS ORDERED: ZOLPIDEM 5 MG TABLET PO PRN (22:30)
[2023-09-02] MEDS ORDERED: ACETAMINOPHEN 325 MG TABLET PO PRN (22:30)
[2023-09-02] MEDS: LORAZEPAM 1 MG TABLET PO PRN (23:02)
[2023-09-03 08:07] LABS: ALBUMIN 3.5 g/dL (3.4-5.0); BILIRUBIN,TOTAL 0.8 mg/dL (0.2-1.0); CALCIUM 8.8 mg/dL (8.5-10.1); CREATININE 0.8 mg/dL (0.6-1.3); POTASSIUM 3.2 mmol/L (3.5-5.1); TOTAL PROTEIN, SERUM 6.7 g/dL (6.4-8.2)
[2023-09-03 08:11] VITALS: BP 91/57; TEMP 97.6; O2SAT 99
[2023-09-03] MEDS ORDERED: LORAZEPAM 0.5 MG TABLET PO PRN (10:00)
[2023-09-03] MEDS ORDERED: HYDROXYZINE PAMOATE 25 MG CAPSULE PO PRN (10:00)
[2023-09-03] MEDS: OLANZAPINE 5 MG TABLET PO SCH (11:18)
[2023-09-03] MEDS ORDERED: ACETAMINOPHEN 325 MG TABLET PO PRN (11:45)
[2023-09-03] MEDS ORDERED: CLONIDINE HCL 0.1 MG TABLET PO PRN (11:45)
[2023-09-03] MEDS ORDERED: MAGNESIUM HYDROXIDE 30 ML LIQUID UDC PO PRN (11:45)
[2023-09-03] MEDS ORDERED: BENZOCAINE/MENTH/CETYLPYRD LOZENGE MM SCH (12:00)
[2023-09-03] MEDS ORDERED: BENZOCAINE/MENTH/CETYLPYRD LOZENGE MM PRN (13:00)
[2023-09-03] MEDS: CIPROFLOXACIN 0.3% OPHT DROP 2.5 ML BOTTLE EACHEYE SCH (13:00)
[2023-09-03] MEDS ORDERED: BISACODYL 10 MG SUPP.RECT RC PRN (13:00)
[2023-09-03] MEDS: POTASSIUM CHLORIDE 20 MEQ TAB.PRT.SR PO SCH (13:15)
[2023-09-03 16:49] VITALS: BP 97/57; TEMP 97.9; O2SAT 99
[2023-09-03] MEDS: DOCUSATE SODIUM 100 MG CAPSULE PO SCH (17:37)
[2023-09-03 20:01] VITALS: BP 104/65; TEMP 98; O2SAT 99
[2023-09-03] MEDS: MIRTAZAPINE 15 MG TABLET PO SCH (20:51)
[2023-09-04 07:48] VITALS: BP 94/52; TEMP 97.8; O2SAT 98
[2023-09-04] MEDS: GABAPENTIN 100 MG CAPSULE PO SCH (08:27)
[2023-09-04] MEDS ORDERED: BISACODYL 10 MG SUPP.RECT RC SCH (09:00)
[2023-09-04 16:13] VITALS: BP 103/62; TEMP 97.9; O2SAT 98
[2023-09-04 20:03] VITALS: BP 101/56; TEMP 97.8; O2SAT 96
[2023-09-04] MEDS: MUPIROCIN 2% OINT 22 GM TUBE NS SCH (20:26)
[2023-09-05 08:15] VITALS: BP 122/72; TEMP 97.8; O2SAT 100
[2023-09-05 20:07] VITALS: BP 116/66; TEMP 97.9; O2SAT 98
[2023-09-06 08:02] VITALS: BP 116/61; TEMP 98.2; O2SAT 99
[2023-09-06 15:40] VITALS: BP 111/67; TEMP 98; O2SAT 99
[2023-09-06 20:10] VITALS: BP 114/64; TEMP 98.1; O2SAT 98
[2023-09-07 08:02] VITALS: BP 114/62; TEMP 98; O2SAT 99
[2023-09-07] MEDS: OLANZAPINE 5 MG TABLET PO SCH (09:51)
[2023-09-07 15:14] VITALS: BP 118/77; TEMP 98.4; O2SAT 96
[2023-09-07 20:00] VITALS: BP 106/64; TEMP 97.7; O2SAT 97
[2023-09-08 08:00] VITALS: BP 101/56; TEMP 98; O2SAT 99
[2023-09-08 15:57] VITALS: BP 103/62; TEMP 97.8; O2SAT 99
[2023-09-08 22:00] VITALS: BP 116/68; TEMP 98; O2SAT 98
[2023-09-09 08:18] VITALS: BP 116/69; TEMP 97.8; O2SAT 98
[2023-09-09 16:27] VITALS: BP 114/72; TEMP 97.9; O2SAT 98
[2023-09-09 20:00] VITALS: BP 112/63; TEMP 97.7; O2SAT 98
[2023-09-10 08:46] VITALS: BP 110/51; TEMP 98; O2SAT 99
[2023-09-10] MEDS: ENSURE ENLIVE (VAN) 240 ML LIQUID PO SCH (09:00)
[2023-09-10 15:59] VITALS: BP 109/48; TEMP 98; O2SAT 99
[2023-09-10 20:00] VITALS: BP 112/54; TEMP 97.9; O2SAT 98
[2023-09-11 08:09] VITALS: BP 102/53; TEMP 97.7; O2SAT 97
[2023-09-11 16:15] VITALS: BP 111/68; TEMP 97.8; O2SAT 97
[2023-09-11 19:57] VITALS: BP 106/60; TEMP 97.7; O2SAT 95
[2023-09-12 08:51] VITALS: BP 123/70; TEMP 97.8; O2SAT 98
[2023-09-12 15:58] VITALS: BP 104/60; TEMP 97.8; O2SAT 98
[2023-09-12 20:31] VITALS: BP 112/66; TEMP 97.9; O2SAT 98
[2023-09-13 08:03] VITALS: BP 95/51; TEMP 98.2; O2SAT 98
[2023-09-13 15:20] VITALS: BP 109/63; TEMP 98.2; O2SAT 98
[2023-09-13 20:00] VITALS: BP 102/64; TEMP 98.1; O2SAT 93
[2023-09-14 11:13] VITALS: BP 97/61; TEMP 98; O2SAT 99
== END 2023-09-14 12:30 | DRG 885 ==
LOC: ER 15:15 → GPS 20:23
PROVIDERS: ADMIT Psychiatry & Neurology Psychiatry; ATTEND Nurse Practitioner Acute Care
DX: F33.3 Major depressive disorder, recurrent, severe with psychotic symptoms (principal); E43 Unspecified severe protein-calorie malnutrition; R45.851 Suicidal ideations; R64 Cachexia; Z68.1 Body mass index [BMI] 19.9 or less, adult; E87.6 Hypokalemia; F17.210 Nicotine dependence, cigarettes, uncomplicated; F41.9 Anxiety disorder, unspecified; J44.9 Chronic obstructive pulmonary disease, unspecified; R62.7 Adult failure to thrive; Z20.822 Contact with and (suspected) exposure to COVID-19; Z71.6 Tobacco abuse counseling; F60.9 Personality disorder, unspecified; M50.30 Other cervical disc degeneration, unspecified cervical region; Z22.322 Carrier or suspected carrier of Methicillin resistant Staphylococcus aureus; F15.11 Other stimulant abuse, in remission; M35.00 Sjogren syndrome, unspecified
CPT/HCPCS: 36415; 85025; C1758; G0480